=== PATIENT | male | born 1965 | race Caucasian/White ===

== ENCOUNTER 2018-01-31 14:42 | Emergency (ER) | payer OTHER ==
[~2018-01-31] VITALS: Ht 170.2 cm; Wt 79.5 kg
[2018-01-31 15:24] VITALS: Ht 170.2 cm; Wt 79.5 kg
[2018-01-31] MEDS ORDERED: COREG6.25 MG PO (15:26)
[2018-01-31] MEDS ORDERED: NORVASC5 MG PO (15:26)
[2018-01-31] MEDS ORDERED: KEFLEX500 MG PO (19:39)
[2018-01-31] MEDS ORDERED: CLEOCIN HCL300 MG PO (19:39)
[2018-01-31 20:19] VITALS: BP 161/95
== END 2018-01-31 20:20 | disposition home or self-care (01) ==
LOC: D.ER 14:42
DX: L03.113 Cellulitis of right upper limb (principal); I10 Essential (primary) hypertension; I25.10 Atherosclerotic heart disease of native coronary artery without angina pectoris; F17.200 Nicotine dependence, unspecified, uncomplicated